=== PATIENT | male | born 1950 | race Caucasian/White ===

== ENCOUNTER 2016-09-15 06:20 | Day surgery (SDC) | payer OTHER, MEDICARE ==
[~2016-09-15 06:20] MED LIST: KETOROLAC TROMETHAMINE 0.45% 4 DROP/0.4 ML DROPERETTE OD PRN
[2016-09-15] MEDS: TETRACAINE HCL 0.5% OPH SOLN 0.6 ML DROPERETTE OD PRN ×2 (06:45→07:16)
[2016-09-15] MEDS: CYCLOPENTOLATE 0.2%/PHENYLEPHRINE 1% OPH SOLN 2 ML OD PRN ×3 (06:45→07:12)
[2016-09-15] MEDS: TROPICAMIDE 1% OPH SOLN 3 ML OD PRN ×3 (06:46→07:13)
[2016-09-15] MEDS: BESIFLOXACIN HCL 0.6% OPH SUSP 5 ML BOTTLE OD PRN ×4 (06:47→08:01)
[2016-09-15] MEDS ORDERED: ONDANSETRON HCL INJ/PF 4 MG/2 ML SDV ONE (07:02)
[2016-09-15] MEDS ORDERED: MIDAZOLAM 2 MG/2 ML INJ ONE (07:02)
[2016-09-15] MEDS ORDERED: FENTANYL CITRATE INJ/PF 100 MCG/2 ML AMPUL ONE (07:02)
[2016-09-15] MEDS ORDERED: LIDOCAINE 2% INJ-PF (20 MG/ML) 10 ML AMPUL ONE (07:16)
[2016-09-15] MEDS: LIDOCAINE 4% INJ/PF (40 MG/ML) 5 ML AMPUL OD PRN ×2 (07:33)
[2016-09-15] MEDS: BUPIVACAINE HCL 0.75% INJ/PF (7.5 MG/1 ML) 10 ML SDV OD PRN ×2 (07:33)
[2016-09-15] MEDS: EPINEPHRINE INJ/PF 1 MG/1 ML AMPULE ONE ×2 (07:46)
[2016-09-15] MEDS: CHONDR SU A NA/HYALUR INTRAOC KIT (SURGICARE) ONE ×2 (07:51)
--- NOTE | 2016-09-15 08:23 | [facility] OPERATIVE REPORT E ---
[facility] Operative Report NAME: STEWART CLIFTON AGE: 66Y DATE OF SURGERY: 09/15/2016 ROOM: PREOPERATIVE DIAGNOSIS: Cataract, right eye. POSTOPERATIVE DIAGNOSIS: Cataract, right eye. PROCEDURE PERFORMED: Phacoemulsification with posterior chamber intraocular lens, right eye. SURGEON: DAVE CULVER M.D. ANESTHESIA: Topical with MAC. INDICATIONS FOR SURGERY: Difficulty with glare with night driving. Best corrected visual acuity 20/50. DESCRIPTION OF PROCEDURE: The patient was brought to the Operating Room and placed on the operative table. Following tetracaine drops, topical anesthesia was administered. This consisted of instrument wipe pledgets soaked in a solution of 4% Xylocaine mixed with 0.75% Marcaine in a 1:2 ratio. A 2 x 1 cm pledget was placed in the superior fornix. A 1 x 1 cm pledget was placed in the inferior fornix. The eye was patched shut for 5 minutes. The patch was removed. The eye was sterilely prepped and draped in the usual manner. Lid speculum was placed in the eye. The pledgets were removed. 4-0 black silk sutures were placed around the superior and the inferior rectus muscles to be used as traction. A conjunctival peritomy was made at the 10 o'clock position. Hemostasis was obtained with bipolar cautery. A posterior limbal groove was created using a crescent knife and dissected anteriorly towards the cornea. A sharp point blade was used to create a paracentesis site at the 2 o'clock position. A 2.4 mm keratome was used to enter the anterior chamber through the groove. Viscoelastic was injected into the anterior chamber. An anterior capsulotomy was performed using Utrata forceps in a capsulorrhexis fashion. Hydrodissection and hydrodelineation were performed. Phacoemulsification was performed in ondemq-ykr-evctsde technique. A total of 1 minute 46 seconds phaco time was used. Following this, the I/A unit was used to remove residual cortex. Viscoelastic was injected into the capsular bag. Intraocular lens model SN60WF, 22.0 diopters, serial number [id number] was placed in the capsular bag. The I/A unit was used to remove residual viscoelastic. The wound was seen to be watertight under high and low pressure, and no sutures were placed. The intraocular lens was well centered. The pressure was adjusted in the eye to normal pressure. The 4-0 black silk sutures and lid speculum were removed. The eye was shielded after Besivance drops were placed. The patient tolerated the procedure well and was sent to the Recovery Room in good condition. DICTATING PHYSICIAN: ADVE CULVER M.D. [id number] [id number] PHY#: [id number] ID: [id number] JOB#: [id number] ACCT: [id number] cc:DAVE CULVER M.D. >
--- NOTE | 2016-09-15 08:24 | [facility] DISCHARGE SUMMARY E ---
[facility] Discharge Summary NAME: STEWART CLIFTON AGE: 66Y ADMITTED: 09/15/2016 DISCHARGED: 09/15/2016 HOSPITAL COURSE: The patient is a 66-year-old gentleman who underwent uneventful cataract extraction with intraocular lens implant, right eye, on 09/15/2015. He will be discharged to home. He is instructed to resume preoperative medications, take Tylenol as needed for discomfort, keep his eye shielded, to use Besivance, Durezol, and Ilevro at 3:00 p.m. and 8:00 p.m., and to follow up in my office in 1 day. DICTATING PHYSICIAN: DAVE CULVER M.D. [id number] [id number] PHY#: [id number] ID: [id number] JOB#: [id number] ACCT: [id number] cc:DAVE CULVER M.D. >
== END 2016-09-15 08:35 | disposition home or self-care (01) ==
LOC: SC 06:20
PROVIDERS: ATTEND Ophthalmology
PROC: 08RJ3JZ Replacement of Right Lens with Synthetic Substitute, Percutaneous Approach (ICD-10-PCS; principal; 2016-09-15 07:30)
DX: H25.13 Age-related nuclear cataract, bilateral (principal); H01.002 Unspecified blepharitis right lower eyelid; H01.005 Unspecified blepharitis left lower eyelid; L71.8 Other rosacea; E66.9 Obesity, unspecified; Z68.34 Body mass index [BMI] 34.0-34.9, adult
CPT/HCPCS: 66984; V2632; J2250; J3490 ×3; J0171; J3010; J2405; 142

== ENCOUNTER 2016-10-06 10:23 | Day surgery (SDC) | payer OTHER, MEDICARE ==
[~2016-10-06 10:23] MED LIST changes: +BUPIVACAINE HCL 0.75% INJ/PF (7.5 MG/1 ML) 10 ML SDV OS PRN; -KETOROLAC TROMETHAMINE 0.45% 4 DROP/0.4 ML DROPERETTE OD PRN; +LIDOCAINE 4% INJ/PF (40 MG/ML) 5 ML AMPUL OS PRN
[2016-10-06] MEDS ORDERED: FENTANYL CITRATE INJ/PF 100 MCG/2 ML AMPUL ONE (10:50)
[2016-10-06] MEDS ORDERED: MIDAZOLAM 2 MG/2 ML INJ ONE (10:50)
[2016-10-06] MEDS: TROPICAMIDE 1% OPH SOLN 3 ML OS PRN ×3 (10:59→11:29)
[2016-10-06] MEDS: CYCLOPENTOLATE 0.2%/PHENYLEPHRINE 1% OPH SOLN 2 ML OS PRN ×3 (10:59→11:29)
[2016-10-06] MEDS: KETOROLAC TROMETHAMINE 0.45% 4 DROP/0.4 ML DROPERETTE OS PRN ×2 (11:00→12:36)
[2016-10-06] MEDS: BESIFLOXACIN HCL 0.6% OPH SUSP 5 ML BOTTLE OS PRN ×4 (11:01→12:09)
[2016-10-06] MEDS: TETRACAINE HCL 0.5% OPH SOLN 0.6 ML DROPERETTE OS PRN ×2 (11:01→11:30)
[2016-10-06] MEDS ORDERED: CHONDR SU A NA/HYALUR INTRAOC KIT (SURGICARE) ONE (11:07)
[2016-10-06] MEDS ORDERED: EPINEPHRINE INJ/PF 1 MG/1 ML AMPULE ONE (11:07)
[2016-10-06] MEDS ORDERED: ACETAMINOPHEN 325 MG TABLET ONE (12:35)
--- NOTE | 2016-10-06 13:13 | [facility] OPERATIVE REPORT E ---
[facility] Operative Report NAME: STEWART CLIFTON AGE: 66Y DATE OF SURGERY: 10/06/2016 ROOM: [facility] Operative Report PREOPERATIVE DIAGNOSIS: CATARACT, LEFT EYE. POSTOPERATIVE DIAGNOSIS: CATARACT, LEFT EYE. PROCEDURE PERFORMED: PHACOEMULSIFICATION WITH POSTERIOR CHAMBER INTRAOCULAR LENS, LEFT EYE. SURGEON: DAVE CULVER MD ANESTHESIA: TOPICAL WITH MAC. INDICATIONS FOR SURGERY: Difficulty reading road signs and glare. Best corrective visual acuity 20/50. PROCEDURE: The patient was brought to the Operating Room and placed on the operative table. Following tetracaine drops, topical anesthesia was administered. This consisted of instrument wipe pledgets soaked in a solution of 4% Xylocaine mixed with 0.75% Marcaine in a 1:2 ratio. A 2 x 1 cm pledget was placed in the superior fornix. A 1 x 1 cm pledget was placed in the inferior fornix. The eye was patched shut for 5 minutes. The patch was removed. The eye was sterilely prepped and draped in the usual manner. Lid speculum was placed in the eye. The pledgets were removed. 4-0 black silk sutures were placed around the superior and the inferior rectus muscles to be used as traction. A conjunctival peritomy was made at the 10 o'clock position. Hemostasis was obtained with bipolar cautery. A posterior limbal groove was created using a crescent knife and dissected anteriorly towards the cornea. A sharp point blade was used to create a paracentesis site at the 2 o'clock position. A 2.4 mm keratome was used to enter the anterior chamber through the groove. Viscoelastic was injected into the anterior chamber. An anterior capsulotomy was performed using Utrata forceps in a capsulorrhexis fashion. Hydrodissection and hydrodelineation were performed. Phacoemulsification was performed in wjrjxs-uzb-jrbleod technique. A total of 1 minute 15 seconds phaco time was used. Following this, the I/A unit was used to remove residual cortex. Viscoelastic was injected into the capsular bag. Intraocular lens model SN60WF, 24.0 diopters, serial number [id number] was placed in the capsular bag. The I/A unit was used to remove residual viscoelastic. The wound was seen to be watertight under high and low pressure, and no sutures were placed. The intraocular lens was well centered. The pressure was adjusted in the eye to normal pressure. The 4-0 black silk sutures and lid speculum were removed. The eye was shielded after Besivance drops were placed. The patient tolerated the procedure well and was sent to the Recovery Room in good condition. DICTATING PHYSICIAN: DAVE CULVER M.D. [id number] PHY#: [id number] ID: [id number] JOB#: [id number] ACCT: [id number] cc:DAVE CULVER M.D. >
--- NOTE | 2016-10-07 09:05 | [facility] DISCHARGE SUMMARY E ---
[facility] Discharge Summary NAME: STEWART CLIFTON AGE: 66Y ADMITTED: 10/06/2016 DISCHARGED: 10/06/2016 ADMITTING DIAGNOSIS: Cataract, left eye. DISCHARGE DIAGNOSIS: Cataract, left eye. HOSPITAL COURSE: The patient is a 66-year-old gentleman who underwent uneventful cataract extraction with intraocular lens implant, left eye, on 10/06/2016. DISPOSITION: He will be discharged to home. DISCHARGE INSTRUCTIONS: He is instructed to resume preoperative medications, take Tylenol as needed for discomfort, keep his eye shielded, to use Besivance, Durezol, and Ilevro at 3 p.m. and 8 p.m., and follow up in my office in 1 day. DICTATING PHYSICIAN: DAVE CULVER M.D. [id number] PHY#: [id number] ID: [id number] JOB#: [id number] ACCT: [id number] cc:DAVE CULVER M.D. >
== END 2016-10-06 12:56 | disposition home or self-care (01) ==
LOC: SC 10:23
PROVIDERS: ATTEND Ophthalmology
PROC: 08RJ3JZ Replacement of Right Lens with Synthetic Substitute, Percutaneous Approach (ICD-10-PCS; principal; 2016-10-06 12:00)
DX: H25.12 Age-related nuclear cataract, left eye (principal); Z96.1 Presence of intraocular lens
CPT/HCPCS: 66984; V2632; J2250; J3490 ×3; J0171; J3010; 142